=== PATIENT | female | born 1990 | race Caucasian/White ===

== ENCOUNTER 2020-11-26 17:05 | Emergency (ER) | payer SELFPAY ==
[~2020-11-26] VITALS: Ht 157.5 cm; Wt 59.0 kg
[2020-11-26 17:10] VITALS: BP_SYST 149
[2020-11-26] MEDS ORDERED: PENI500T PO (18:32)
== END 2020-11-26 18:36 | disposition home or self-care (01) ==
LOC: SED 17:05
DX: K08.89 Other specified disorders of teeth and supporting structures (principal)
CPT/HCPCS: 99283